=== PATIENT | male | born 1985 | race American Indian/Alaskan Native ===

== ENCOUNTER 2018-12-09 09:45 | Emergency (ER) | payer SELFPAY ==
[2018-12-09 10:04] VITALS: BP 141/96
[2018-12-09] MEDS ORDERED: IBUPROFEN PO ONE (11:20)
[2018-12-09] MEDS ORDERED: TESSALON PERLES PO ONE (11:20)
--- NOTE | 2018-12-09 11:24 | Emergency Department Report ---
ED Chest Pain HPI - General Chief Complaint: Chest Pain Stated Complaint: CHEST TIGHT/SOB/COUGH Time Seen by Provider: 12/09/18 11:05 Source: patient Mode of arrival: Ambulatory Limitations: No Limitations - History of Present Illness Initial Comments: This is a 33-year-old male nontoxic, well nourished in appearance, no acute signs of distress presents to the ED with c/o of nonproductive cough, midsternum chest pain and shortness of breathe x4 days. Patient denies any radiation of pain. Patient describes pain as aching intermittently and only during out. Patient also stated he feels shortness of breathe during cough but otherwise denies any shortness of breathe. Patient denies any hemoptysis, fever, chills, nausea, vomiting, headache, stiff neck, numbness, tingling, abdominal pain. Patient denies pleuritic chest pain. Patient denies any recent travels or long car rides. Patient denies any recent surgeries or any sick contacts. Patient denies any drug allergies. MD Complaint: chest pain -: days(s) (4) Pain Location: other (midsternal) Pain Radiation: none Severity: mild Severity scale (0 -10): 3 Quality: aching Consistency: intermittent Improves With: rest Worsens With: other (cough) re: denies: nausea, vomting, diaphoresis, dyspnea, sense of impending doom Other Symptoms: cough. denies: fever, syncope, rash, acid taste in mouth, leg swelling, palpitations, burping Treatments Prior to Arrival: none Aspirin use within the Past 7 Days: (0) No - Related Data Previous Rx's Medication Instructions Recorded Last Taken Type Amoxicillin/K Clav Tab [Augmentin 1 tab PO Q12HR #20 tab 08/28/15 Unknown Rx 875MG TAB] Prednisone [predniSONE 10 mg 10 mg PO .TAPER #1 tab.ds.pk 08/28/15 Unknown Rx (6-Day Pack, 21 Tabs)] Gentamicin 0.3% Ophth Soln 2 drops OP Q4H #1 bottle 05/17/16 Unknown Rx Ibuprofen [Motrin] 600 mg PO Q8H PRN #50 tablet 05/17/16 Unknown Rx Meloxicam 7.5 mg PO QAM #5 tablet 09/17/17 Unknown Rx ALBUTEROL Inhaler(NF) [VENTOLIN 2 puff IH Q4-6H PRN #1 inha 12/09/18 Unknown Rx Inhaler(NF)] Ibuprofen [Motrin] 600 mg PO Q8H PRN #20 tablet 12/09/18 Unknown Rx Prednisone [predniSONE 10 mg 10 mg PO .TAPER #1 tab.ds.pk 12/09/18 Unknown Rx (6-Day Pack, 21 Tabs)] Allergies Allergy/AdvReac Type Severity Reaction Status Date / Time chocolate flavor Allergy Swelling Verified 12/09/18 10:00 Heart Score - HEART Score History: Slightly suspicious EKG: Normal Age: < 45 Risk factors: No known risk factors Troponin: < normal limit HEART Score: 0 ED Review of Systems ROS: Stated complaint: CHEST TIGHT/SOB/COUGH Other details as noted in HPI Constitutional: denies: chills, fever Eyes: denies: eye pain, eye discharge, vision change ENT: congestion. denies: ear pain, throat pain Respiratory: cough, shortness of breath. denies: wheezing Cardiovascular: chest pain. denies: palpitations Endocrine: no symptoms reported Gastrointestinal: denies: abdominal pain, nausea, diarrhea Genitourinary: denies: urgency, dysuria Musculoskeletal: denies: back pain, joint swelling, arthralgia Skin: denies: rash, lesions Neurological: denies: headache, weakness, paresthesias Psychiatric: denies: anxiety, depression Hematological/Lymphatic: denies: easy bleeding, easy bruising ED Past Medical Hx - Past Medical History Previous Medical History?: Yes Hx Asthma: Yes - Surgical History Past Surgical History?: Yes Additional Surgical History: L hip surgery - Social History Smoking Status: Never Smoker Substance Use Type: None - Medications Home Medications: Home Medications Medication Instructions Recorded Confirmed Last Taken Type Amoxicillin/K Clav Tab [Augmentin 1 tab PO Q12HR #20 tab 08/28/15 05/17/16 Unknown Rx 875MG TAB] Prednisone [predniSONE 10 mg 10 mg PO .TAPER #1 tab.ds.pk 08/28/15 05/17/16 Unknown Rx (6-Day Pack, 21 Tabs)] Gentamicin 0.3% Ophth Soln 2 drops OP Q4H #1 bottle 05/17/16 Unknown Rx Ibuprofen [Motrin] 600 mg PO Q8H PRN #50 tablet 05/17/16 Unknown Rx Meloxicam 7.5 mg PO QAM #5 tablet 09/17/17 Unknown Rx ALBUTEROL Inhaler(NF) [VENTOLIN 2 puff IH Q4-6H PRN #1 inha 12/09/18 Unknown Rx Inhaler(NF)] Ibuprofen [Motrin] 600 mg PO Q8H PRN #20 tablet 12/09/18 Unknown Rx Prednisone [predniSONE 10 mg 10 mg PO .TAPER #1 tab.ds.pk 12/09/18 Unknown Rx (6-Day Pack, 21 Tabs)] ED Physical Exam - General Limitations: No Limitations General appearance: alert, in no apparent distress - Head Head exam: Present: atraumatic, normocephalic - Eye Eye exam: Present: normal appearance - Neck Neck exam: Present: normal inspection, full ROM - Respiratory Respiratory exam: Present: normal lung sounds bilaterally, chest wall tenderness (midsternum). Absent: respiratory distress, wheezes, rales, rhonchi, stridor, accessory muscle use, decreased breath sounds, prolonged expiratory - Cardiovascular Cardiovascular Exam: Present: regular rate, normal rhythm, normal heart sounds. Absent: bradycardia, tachycardia, irregular rhythm, systolic murmur, diastolic murmur, rubs, gallop - Rectal Rectal exam: Present: deferred - Extremities Exam Extremities exam: Present: normal inspection, full ROM - Back Exam Back exam: Present: normal inspection, full ROM - Neurological Exam Neurological exam: Present: alert, oriented X3 - Psychiatric Psychiatric exam: Present: normal affect, normal mood - Skin Skin exam: Present: warm, dry, intact, normal color. Absent: rash ED Course Vital Signs 12/09/18 10:00 Temperature 98.8 F Pulse Rate 71 Respiratory 16 Rate Blood Pressure 141/96 [Right] O2 Sat by Pulse 98 Oximetry - Reevaluation(s) Reevaluation #1: 12/09/18 13:44 Patient is speaking in full sentences with no signs of distress noted. MARCELL score - Marcell Score Age > 65: (0) No Aspirin use within the Past 7 Days: (0) No 3 or more CAD Risk Factors: (0) No 2 or more Angina events in past 24 hrs: (0) No Known CAD with more than 50% Stenosis: (0) No Elevated Cardiac Markers: (0) No ST Deviation Greater than 0.5mm: (0) No MARCELL Score: 0 ED Medical Decision Making - Lab Data Result diagrams: 12/09/18 11:27 12/09/18 11:27 - Medical Decision Making This is a 33-year-old male that presents with costochondritis and bronchitis. Patient is stable and was examined by me. MARCELL and HEART score 0 pints. Wells criteria for DVT/SVT/PE 0 points. Negative d-dimmer. EKG normal sinus rhythm with no significant changes in ST. Chest xray dictated by the radiologist. PAtient is notified of the Xray report with no questions noted. Labs within normal limits. Negative troponin. Patient received Motrin and Tessonlon perrls in the ED which she stated his symptoms are improving subsided. I will discharge patient with prednisone and Motrin. Patient also requested for albuterol refill. Patient was instructed to Follow-up with a primary care/project portfolio analyst doctor in 3-5 days or if symptoms worsen and continue return to emergency room as soon as possible. At time of discharge, the patient does not seem toxic or ill in appearance. No acute signs of distress noted. Patient agrees to discharge treatment plan of care. No further questions noted by the patient. Critical care attestation.: If time is entered above; I have spent that time in minutes in the direct care of this critically ill patient, excluding procedure time. ED Disposition Clinical Impression: Bronchitis, Costochondritis Disposition: -01 TO HOME OR SELFCARE Is pt being admited?: No Does the pt Need Aspirin: No Condition: Stable Instructions: Acute Bronchitis (ED), Costochondritis (ED) Additional Instructions: Follow-up with a primary care/project portfolio analyst doctor in 2-3 days or if symptoms worsen and continue return to emergency room as soon as possible. Prescriptions: ALBUTEROL Inhaler(NF) [VENTOLIN Inhaler(NF)] 2 puff IH Q4-6H PRN #1 inha PRN Reason: Wheezing Ibuprofen [Motrin] 600 mg PO Q8H PRN #20 tablet PRN Reason: Pain Prednisone [predniSONE 10 mg (6-Day Pack, 21 Tabs)] 10 mg PO .TAPER #1 tab.ds.pk Referrals: DAVID HOWARD MD [Primary Care Provider] - 3-5 Days PRIMARY CARE, [Referring] - 3-5 Days MARIKA JARRETT MD [Staff Physician] - 3-5 Days [facility] [Outside] - 3-5 Days [facility] [Outside] - 3-5 Days Forms: Work/School Release Form(ED)
[2018-12-09 11:43] LABS: Basophils % (Auto) 0.8 % (0.0-1.8); Eosinophils # (Auto) 0.5 K/mm3 (0.0-0.4); Eosinophils % (Auto) 9.6 % (0.0-4.3); Hematocrit 48.4 % (35.5-45.6); Hemoglobin 16.3 gm/dl (11.8-15.2); Lymphocytes # (Auto) 1.7 K/mm3 (1.2-5.4); Lymphocytes % (Auto) 34.6 % (13.4-35.0); Mean Corpuscular HGB Conc 34 % (32-34); Mean Corpuscular Volume 88 fl (84-94); Monocytes # (Auto) 0.7 K/mm3 (0.0-0.8); Monocytes % (Auto) 14.5 % (0.0-7.3); Platelet Count 199 K/mm3 (140-440); Red Blood Count 5.49 M/mm3 (3.65-5.03); Red Cell Distribution Width 12.7 % (13.2-15.2)
[2018-12-09 11:54] LABS: BUN/Creatinine Ratio 11; Blood Urea Nitrogen 11 mg/dL (9-20); Calcium 9.4 mg/dL (8.4-10.2); Hemolysis Index 15
--- NOTE | 2018-12-09 12:05 | XRay Report ---
CHEST 2 VIEWS INDICATION: Chest pain. COMPARISON: None similar at this institution. FINDINGS: PA and lateral chest radiographs suggest top normal heart size/borderline cardiomegaly. Mild bronchovascular prominence centrally with subtle perihilar/midlung small nodular airspace opacities, left more than right. No pleural effusions or cephalization however. Intact bones. CONCLUSION: Subtle perihilar nodular airspace opacities and mild central bronchovascular prominence with borderline cardiomegaly. Possible considerations at this time include infection, inflammation versus early/developing pulmonary vascular congestion. Please correlate. Thank you for the opportunity to participate in this patient's care.
== END 2018-12-09 13:54 | disposition home or self-care (01) ==
LOC: ED 09:45
DX: J40 Bronchitis, not specified as acute or chronic (principal); M94.0 Chondrocostal junction syndrome [Tietze]; Z98.890 Other specified postprocedural states; Z91.018 Allergy to other foods
CPT/HCPCS: 36415; 71046; 80048; 84484; 85025; 85379; 85610; 85730; 93005; 93010

== ENCOUNTER 2019-05-12 18:45 | Emergency (ER) | payer OTHER ==
[2019-05-12 19:20] VITALS: BP 138/84
--- NOTE | 2019-05-12 19:27 | Emergency Department Report ---
Blank Doc - Documentation Documentation: This is a 34-year-old male that presents with sore throat. This initial assessment/diagnostic orders/clinical plan/treatment(s) is/are subject to change based on patient's health status, clinical progression and re- assessment by fellow clinical providers in the ED. Further treatment and workup at subsequent clinical providers discretion. Patient/guardians urged not to elope from the ED as their condition may be serious if not clinically assessed and managed. Initial orders include: 1- Patient sent to [facility] for further evaluation and treatment. 2- strep swab
[2019-05-12] MEDS ORDERED: LIDOCAINE VISCOUS 2% PO ONE (23:18)
[2019-05-12] MEDS ORDERED: IBUPROFEN PO ONE (23:18)
--- NOTE | 2019-05-12 23:23 | Emergency Department Report ---
ED General Adult HPI - General Chief complaint: Sore Throat Stated complaint: SORE THROAT Time Seen by Provider: 05/12/19 19:26 Source: patient Mode of arrival: Ambulatory Limitations: No Limitations - History of Present Illness Initial comments: Patient is a 34-year-old -French male with no past medical history presents to the ED with complaint of acute onset persistent severe sore throat and dysphagia for the last 3 days. Patient states that swallowing anything including liquids and solids makes the pain worse. She denies fever, chills, nausea, vomiting, dizziness, headache, nasal and sinus congestion, cough, chest pain or shortness of breath or abdominal pain. Patient states that this morning as a home with similar symptoms. MD Complaint: Sore throat -: Sudden, days(s) (3) Location: mouth Radiation: non-radiation Severity scale (0 -10): 8 Quality: burning, aching, sharp Consistency: constant Improves with: none Worsens with: eating Associated Symptoms: denies other symptoms. denies: confusion, chest pain, cough, diaphoresis, fever/chills, headaches, loss of appetite, malaise, nausea/vomiting, shortness of breath, syncope, weakness Treatments Prior to Arrival: none - Related Data Previous Rx's Medication Instructions Recorded Last Taken Type Amoxicillin/K Clav Tab [Augmentin 1 tab PO Q12HR #20 tab 08/28/15 Unknown Rx 875MG TAB] Prednisone [predniSONE 10 mg 10 mg PO .TAPER #1 tab.ds.pk 08/28/15 Unknown Rx (6-Day Pack, 21 Tabs)] Gentamicin 0.3% Ophth Soln 2 drops OP Q4H #1 bottle 05/17/16 Unknown Rx Ibuprofen [Motrin] 600 mg PO Q8H PRN #50 tablet 05/17/16 Unknown Rx Meloxicam 7.5 mg PO QAM #5 tablet 09/17/17 Unknown Rx ALBUTEROL Inhaler(NF) [VENTOLIN 2 puff IH Q4-6H PRN #1 inha 12/09/18 Unknown Rx Inhaler(NF)] Ibuprofen [Motrin] 600 mg PO Q8H PRN #20 tablet 12/09/18 Unknown Rx Prednisone [predniSONE 10 mg 10 mg PO .TAPER #1 tab.ds.pk 12/09/18 Unknown Rx (6-Day Pack, 21 Tabs)] Azithromycin [Zithromax Z-GRANT] 250 mg PO DAILY #6 tablet 05/12/19 Unknown Rx Ibuprofen [Motrin] 800 mg PO Q8HR PRN #20 tablet 05/12/19 Unknown Rx Lidocaine Viscous 2% 10 ml PO Q6H PRN #120 ml 05/12/19 Unknown Rx Allergies Allergy/AdvReac Type Severity Reaction Status Date / Time chocolate flavor Allergy Swelling Verified 12/09/18 10:00 ED Review of Systems ROS: Stated complaint: SORE THROAT Other details as noted in HPI Constitutional: denies: chills, fever Eyes: denies: eye pain, eye discharge, vision change ENT: throat pain. denies: ear pain Respiratory: denies: cough, shortness of breath, wheezing Cardiovascular: denies: chest pain, palpitations Endocrine: no symptoms reported Gastrointestinal: denies: abdominal pain, nausea, diarrhea Genitourinary: denies: urgency, dysuria Musculoskeletal: denies: back pain, joint swelling, arthralgia Skin: denies: rash, lesions Neurological: denies: headache, weakness, paresthesias Psychiatric: denies: anxiety, depression Hematological/Lymphatic: denies: easy bleeding, easy bruising ED Past Medical Hx - Past Medical History Previous Medical History?: Yes Hx Asthma: Yes - Surgical History Past Surgical History?: No Additional Surgical History: L hip surgery - Social History Smoking Status: Never Smoker Substance Use Type: None - Medications Home Medications: Home Medications Medication Instructions Recorded Confirmed Last Taken Type Amoxicillin/K Clav Tab [Augmentin 1 tab PO Q12HR #20 tab 08/28/15 05/17/16 Unknown Rx 875MG TAB] Prednisone [predniSONE 10 mg 10 mg PO .TAPER #1 tab.ds.pk 08/28/15 05/17/16 Unknown Rx (6-Day Pack, 21 Tabs)] Gentamicin 0.3% Ophth Soln 2 drops OP Q4H #1 bottle 05/17/16 Unknown Rx Ibuprofen [Motrin] 600 mg PO Q8H PRN #50 tablet 05/17/16 Unknown Rx Meloxicam 7.5 mg PO QAM #5 tablet 09/17/17 Unknown Rx ALBUTEROL Inhaler(NF) [VENTOLIN 2 puff IH Q4-6H PRN #1 inha 12/09/18 Unknown Rx Inhaler(NF)] Ibuprofen [Motrin] 600 mg PO Q8H PRN #20 tablet 12/09/18 Unknown Rx Prednisone [predniSONE 10 mg 10 mg PO .TAPER #1 tab.ds.pk 12/09/18 Unknown Rx (6-Day Pack, 21 Tabs)] Azithromycin [Zithromax Z-GRANT] 250 mg PO DAILY #6 tablet 05/12/19 Unknown Rx Ibuprofen [Motrin] 800 mg PO Q8HR PRN #20 tablet 05/12/19 Unknown Rx Lidocaine Viscous 2% 10 ml PO Q6H PRN #120 ml 05/12/19 Unknown Rx ED Physical Exam - General Limitations: No Limitations General appearance: alert, in no apparent distress - Head Head exam: Present: atraumatic, normocephalic, normal inspection - Eye Eye exam: Present: normal appearance, PERRL, EOMI - ENT ENT exam: Present: mucous membranes moist, TM's normal bilaterally, normal external ear exam, other (Erythematous oropharyngeal area) - Neck Neck exam: Present: normal inspection, full ROM - Respiratory Respiratory exam: Present: normal lung sounds bilaterally. Absent: respiratory distress, wheezes, rales, rhonchi, chest wall tenderness, accessory muscle use, decreased breath sounds, prolonged expiratory - Cardiovascular Cardiovascular Exam: Present: regular rate, normal rhythm, normal heart sounds. Absent: systolic murmur, diastolic murmur, rubs, gallop - GI/Abdominal GI/Abdominal exam: Present: soft, normal bowel sounds. Absent: distended, tenderness, guarding, hyperactive bowel sounds, organomegaly - Rectal Rectal exam: Present: deferred - Extremities Exam Extremities exam: Present: normal inspection, full ROM, normal capillary refill - Back Exam Back exam: Present: normal inspection, full ROM. Absent: tenderness, CVA tenderness (R), CVA tenderness (L), paraspinal tenderness - Neurological Exam Neurological exam: Present: alert, oriented X3, CN II-XII intact, normal gait, reflexes normal - Psychiatric Psychiatric exam: Present: normal affect, normal mood - Skin Skin exam: Present: warm, dry, intact, normal color. Absent: rash ED Course Vital Signs 05/12/19 19:19 Temperature 98.1 F Pulse Rate 69 Respiratory 18 Rate Blood Pressure 138/84 [Left] O2 Sat by Pulse 100 Oximetry - Reevaluation(s) Reevaluation #1: 05/12/19 23:22 Patient is alert and oriented 3 and is not in distress with normal vital signs. Patient was today for pain in the ED and rapid strep test is negative. Patient was discharged home on medications and advised to follow-up with his primary care physician in 5-7 days for reevaluation. The patient advised to return to the ED immediately if symptoms get worse. ED Medical Decision Making - Medical Decision Making Patient is alert and oriented 3 and is not in distress with normal vital signs. Patient was today for pain in the ED and rapid strep test is negative. Patient was discharged home on medications and advised to follow-up with his primary care physician in 5-7 days for reevaluation. The patient advised to return to the ED immediately if symptoms get worse. - Differential Diagnosis acute pharyngitis; acute URI Critical care attestation.: If time is entered above; I have spent that time in minutes in the direct care of this critically ill patient, excluding procedure time. ED Disposition Clinical Impression: Acute pharyngitis Qualifiers: Pharyngitis/tonsillitis etiology: unspecified etiology Qualified Code(s): J02.9 - Acute pharyngitis, unspecified Disposition: TO HOME OR SELFCARE Is pt being admited?: No Does the pt Need Aspirin: No Condition: Stable Instructions: Pharyngitis (ED), Strep Throat (ED) Additional Instructions: TAKE MEDICATIONS WITH FOOD, DRINK PLENTY OF FLUIDS AND FOLLOW UP WITH YOUR PRIMARY CARE PHYSICIAN IN 7-10 DAYS FOR REEVALUATION Prescriptions: Lidocaine Viscous 2% 10 ml PO Q6H PRN #120 ml PRN Reason: Pain , Severe (7-10) Ibuprofen [Motrin] 800 mg PO Q8HR PRN #20 tablet PRN Reason: Pain , Severe (7-10) Azithromycin [Zithromax Z-GRANT] 250 mg PO DAILY #6 tablet Referrals: [facility] [Outside] - 3-5 Days Time of Disposition: 23:24 Print Language: URUGUAYAN
== END 2019-05-13 00:10 | disposition home or self-care (01) ==
LOC: ED 18:45
DX: J02.9 Acute pharyngitis, unspecified (principal); J45.909 Unspecified asthma, uncomplicated; Z98.890 Other specified postprocedural states; Z91.018 Allergy to other foods
CPT/HCPCS: 87116; 87430

== ENCOUNTER 2019-11-27 22:42 | Emergency (ER) | payer SELFPAY ==
--- NOTE | 2019-11-28 03:31 | Emergency Department Report ---
Chief Complaint: Sore Throat Stated Complaint: SORE THROAT Time Seen by Provider: 11/28/19 02:44 - HPI History of Present Illness: Patient is a 34-year-old male presents emergency room with complaints of a sore throat that began a couple days ago. He states that he has some discomfort with swallowing. He denies any fever or throat swelling. He is able to tolerate by mouth intake without difficulty. He denies any known sick contacts. 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 He states that he notices the throat discomfort increases after he has been working. He denies any past medical history or allergies medications. He has never seen an ear nose and throat doctor. Vitals are normal. Rapid strep ordered by triage and is negative all other 10 systems reviewed and are negative On exam No acute distress, nontoxic appearing Normal oropharynx, no tonsillar hypertrophy, no exudates, uvula is midline, no uvular deviation, no uvular edema No lymphadenopathy Normal heart sounds, regular rate and rhythm, no gallops, no murmurs him a no rubs Normal breath sounds bilaterally without wheezing, rales, rhonchi Patient is presenting with a nonmedical emergency at this time Screening examination performed and there is no threat to life or limb at this time Patient has been evaluated in the emergency department previously and has had negative throat cultures Could be related to a viral pharyngitis or allergies will refer patient to a ENT doctor and a primary care doctor MSE screening note: Focused history and physical exam performed. ED Disposition for MSE Clinical Impression: Pain in throat Disposition: MED SCREENING EXAM-LEFT Is pt being admited?: No Does the pt Need Aspirin: No Condition: Stable Additional Instructions: may use [id number] throat spray or Cepacol. May use Tylenol or ibuprofen for discomfort. Do warm saltwater gargles 3 times a day. May take a Claritin or Zyrtec [id number]. Follow-up with a primary care doctor and ears nose and throat doctor in the next 2-3 days. Return to the emergency room for any new or worsening symptoms. Referrals: CHIP SHOEMAKER MD [Staff Physician] - 2-[address] [facility] [Outside] - 2-3 Days [facility] [Outside] - 2-3 Days GARY BROWN MD [Staff Physician] - 2-3 Days ZHANG GARZON MD [Staff Physician] - 2-3 Days Time of Disposition: 03:29 Print Language: ARABIC
[2019-11-28 04:12] VITALS: BP 147/100
== END 2019-11-28 04:11 | disposition left against medical advice (07) ==
LOC: ED 22:42
DX: R07.0 Pain in throat (principal)
CPT/HCPCS: 87116; 87430

== ENCOUNTER 2022-01-06 19:04 | Emergency (ER) | payer SELFPAY ==
[2022-01-06 19:44] VITALS: BP 149/82
--- NOTE | 2022-01-06 21:40 | Emergency Department Report ---
ED ENT HPI - General Chief complaint: Sore Throat Stated complaint: BODY ACHES/SORE THROAT/FEVER Source: patient Mode of arrival: Ambulatory Limitations: No Limitations - History of Present Illness Initial comments: 36-year-old male presents to the ED complaining of sore throat x3 days. States painful to swallow. Patient complaining of fever. Denies taking any [id number] medication. Patient states that he has had strep throat in the past. Patient is alert and oriented x3. No acute distress noted. No ill appearance noted. Onset/Timin -: days(s) Severity scale (0 -10): 6 Quality: aching Consistency: constant Improves with: none Worsens with: swallowing Associated Symptoms: fever - Related Data Previous Rx's Medication Instructions Recorded Last Taken Type Amoxicillin/K Clav Tab [Augmentin 1 tab PO Q12HR #20 tab 08/28/15 Unknown Rx 875MG TAB] Prednisone [predniSONE 10 mg 10 mg PO .TAPER #1 tab.ds.pk 08/28/15 Unknown Rx (6-Day Pack, 21 Tabs)] Gentamicin 0.3% Ophth Soln 2 drops OP Q4H #1 bottle 05/17/16 Unknown Rx Ibuprofen [Motrin] 600 mg PO Q8H PRN #50 tablet 05/17/16 Unknown Rx Meloxicam 7.5 mg PO QAM #5 tablet 09/17/17 Unknown Rx ALBUTEROL Inhaler(NF) [VENTOLIN 2 puff IH Q4-6H PRN #1 inha 12/09/18 Unknown Rx Inhaler(NF)] Ibuprofen [Motrin] 600 mg PO Q8H PRN #20 tablet 12/09/18 Unknown Rx Prednisone [predniSONE 10 mg 10 mg PO .TAPER #1 tab.ds.pk 12/09/18 Unknown Rx (6-Day Pack, 21 Tabs)] Azithromycin [Zithromax Z-GRANT] 250 mg PO DAILY #6 tablet 05/12/19 Unknown Rx Ibuprofen [Motrin] 800 mg PO Q8HR PRN #20 tablet 05/12/19 Unknown Rx Lidocaine Viscous 2% 10 ml PO Q6H PRN #120 ml 05/12/19 Unknown Rx Acetaminophen/Codeine [Tylenol 1 tab PO Q6H PRN 3 Days #12 tab 01/06/22 Unknown Rx /Codeine # 3 tab] Ibuprofen [Motrin] 800 mg PO Q8HR PRN 15 Days #30 01/06/22 Unknown Rx tablet Penicillin V Potassium 500 mg PO BID 10 Days #20 tab 01/06/22 Unknown Rx Allergies Allergy/AdvReac Type Severity Reaction Status Date / Time chocolate flavor Allergy Swelling Verified 12/09/18 10:00 ED Dental HPI - General Chief complaint: Sore Throat Stated complaint: BODY ACHES/SORE THROAT/FEVER Source: patient Mode of arrival: Ambulatory Limitations: No Limitations - Related Data Previous Rx's Medication Instructions Recorded Last Taken Type Amoxicillin/K Clav Tab [Augmentin 1 tab PO Q12HR #20 tab 08/28/15 Unknown Rx 875MG TAB] Prednisone [predniSONE 10 mg 10 mg PO .TAPER #1 tab.ds.pk 08/28/15 Unknown Rx (6-Day Pack, 21 Tabs)] Gentamicin 0.3% Ophth Soln 2 drops OP Q4H #1 bottle 05/17/16 Unknown Rx Ibuprofen [Motrin] 600 mg PO Q8H PRN #50 tablet 05/17/16 Unknown Rx Meloxicam 7.5 mg PO QAM #5 tablet 09/17/17 Unknown Rx ALBUTEROL Inhaler(NF) [VENTOLIN 2 puff IH Q4-6H PRN #1 inha 12/09/18 Unknown Rx Inhaler(NF)] Ibuprofen [Motrin] 600 mg PO Q8H PRN #20 tablet 12/09/18 Unknown Rx Prednisone [predniSONE 10 mg 10 mg PO .TAPER #1 tab.ds.pk 12/09/18 Unknown Rx (6-Day Pack, 21 Tabs)] Azithromycin [Zithromax Z-GRANT] 250 mg PO DAILY #6 tablet 05/12/19 Unknown Rx Ibuprofen [Motrin] 800 mg PO Q8HR PRN #20 tablet 05/12/19 Unknown Rx Lidocaine Viscous 2% 10 ml PO Q6H PRN #120 ml 05/12/19 Unknown Rx Acetaminophen/Codeine [Tylenol 1 tab PO Q6H PRN 3 Days #12 tab 01/06/22 Unknown Rx /Codeine # 3 tab] Ibuprofen [Motrin] 800 mg PO Q8HR PRN 15 Days #30 01/06/22 Unknown Rx tablet Penicillin V Potassium 500 mg PO BID 10 Days #20 tab 01/06/22 Unknown Rx Allergies Allergy/AdvReac Type Severity Reaction Status Date / Time chocolate flavor Allergy Swelling Verified 12/09/18 10:00 ED Review of Systems ROS: Stated complaint: BODY ACHES/SORE THROAT/FEVER Other details as noted in HPI Constitutional: denies: chills, fever Eyes: denies: eye pain, eye discharge, vision change ENT: throat pain. denies: ear pain Respiratory: denies: cough, shortness of breath, wheezing Cardiovascular: denies: chest pain, palpitations Endocrine: no symptoms reported Gastrointestinal: denies: abdominal pain, nausea, diarrhea Genitourinary: denies: urgency, dysuria Musculoskeletal: denies: back pain, joint swelling, arthralgia Skin: denies: rash, lesions Neurological: denies: headache, weakness, paresthesias Psychiatric: denies: anxiety, depression Hematological/Lymphatic: denies: easy bleeding, easy bruising ED Past Medical Hx - Past Medical History Previous Medical History?: Yes Hx Asthma: Yes - Surgical History Past Surgical History?: Yes Additional Surgical History: L hip surgery - Social History Smoking Status: Never Smoker Substance Use Type: None - Medications Home Medications: Home Medications Medication Instructions Recorded Confirmed Last Taken Type Amoxicillin/K Clav Tab [Augmentin 1 tab PO Q12HR #20 tab 08/28/15 05/17/16 Unknown Rx 875MG TAB] Prednisone [predniSONE 10 mg 10 mg PO .TAPER #1 tab.ds.pk 08/28/15 05/17/16 Unknown Rx (6-Day Pack, 21 Tabs)] Gentamicin 0.3% Ophth Soln 2 drops OP Q4H #1 bottle 05/17/16 Unknown Rx Ibuprofen [Motrin] 600 mg PO Q8H PRN #50 tablet 05/17/16 Unknown Rx Meloxicam 7.5 mg PO QAM #5 tablet 09/17/17 Unknown Rx ALBUTEROL Inhaler(NF) [VENTOLIN 2 puff IH Q4-6H PRN #1 inha 12/09/18 Unknown Rx Inhaler(NF)] Ibuprofen [Motrin] 600 mg PO Q8H PRN #20 tablet 12/09/18 Unknown Rx Prednisone [predniSONE 10 mg 10 mg PO .TAPER #1 tab.ds.pk 12/09/18 Unknown Rx (6-Day Pack, 21 Tabs)] Azithromycin [Zithromax Z-GRANT] 250 mg PO DAILY #6 tablet 05/12/19 Unknown Rx Ibuprofen [Motrin] 800 mg PO Q8HR PRN #20 tablet 05/12/19 Unknown Rx Lidocaine Viscous 2% 10 ml PO Q6H PRN #120 ml 05/12/19 Unknown Rx Acetaminophen/Codeine [Tylenol 1 tab PO Q6H PRN 3 Days #12 tab 01/06/22 Unknown Rx /Codeine # 3 tab] Ibuprofen [Motrin] 800 mg PO Q8HR PRN 15 Days #30 01/06/22 Unknown Rx tablet Penicillin V Potassium 500 mg PO BID 10 Days #20 tab 01/06/22 Unknown Rx ED Physical Exam - General Limitations: No Limitations General appearance: alert, in no apparent distress - Head Head exam: Present: atraumatic, normocephalic - Eye Eye exam: Present: normal appearance - ENT ENT exam: Present: mucous membranes moist - Expanded ENT Exam Expanded Throat exam: Positive: tonsillar erythema, tonsillomegaly, tonsillar exudate - Neck Neck exam: Present: normal inspection - Respiratory Respiratory exam: Present: normal lung sounds bilaterally. Absent: respiratory distress - Cardiovascular Cardiovascular Exam: Present: regular rate, normal rhythm. Absent: systolic murmur, diastolic murmur, rubs, gallop - GI/Abdominal GI/Abdominal exam: Present: soft, normal bowel sounds - Rectal Rectal exam: Present: deferred - Extremities Exam Extremities exam: Present: normal inspection - Back Exam Back exam: Present: normal inspection - Neurological Exam Neurological exam: Present: alert, oriented X3 - Psychiatric Psychiatric exam: Present: normal affect, normal mood - Skin Skin exam: Present: warm, dry, intact, normal color. Absent: rash ED Course Vital Signs 01/06/22 19:37 Temperature 99.3 F Pulse Rate 76 Respiratory 17 Rate Blood Pressure 149/82 [Right] O2 Sat by Pulse 96 Oximetry ED Medical Decision Making - Medical Decision Making 36-year-old male presents to the ED complaining of sore throat x3 days. States painful to swallow. Patient complaining of fever. Denies taking any [id number] medication. Patient states that he has had strep throat in the past. Patient is alert and oriented x3. No acute distress noted. No ill appearance noted. Physical examination enlarged tonsils, erythema and tonsillar exudate. Rapid strep positive. Discussed findings with patient Rechecked the patient is resting quietly quietly and comfortable and feeling better. I discussed the results of diagnostic study, my clinical impression and the plan for further treatment with the patient. Patient agrees with plan and discharge at this present time. All question addressed. I have given the patient instruction regarding a diagnosis ,expectation ,follow- up and return precaution. I explained to the patient that emergent condition may arise and to return to the ED for new worsen and any new persisting condition. I have explained the importance of following up with the primary care physician or referral physician listed below has instructed. The patient verbalized understanding of discharge instruction. Critical care attestation.: If time is entered above; I have spent that time in minutes in the direct care of this critically ill patient, excluding procedure time. ED Disposition Clinical Impression: Strep pharyngitis Disposition: 01 HOME / SELF CARE / HOMELESS Is pt being admited?: No Does the pt Need Aspirin: No Condition: Stable Instructions: Strep Throat, Adult, [id number] Additional Instructions: Drink Plenty of fluids Take medication as prescribed Return to ED for any worsening symptoms Prescriptions: Ibuprofen [Motrin] 800 mg PO Q8HR PRN 15 Days #30 tablet PRN Reason: Pain, Mild (1-3) Penicillin V Potassium 500 mg PO BID 10 Days #20 tab Acetaminophen/Codeine [Tylenol /Codeine # 3 tab] 1 tab PO Q6H PRN 3 Days #12 tab PRN Reason: Pain , Severe (7-10) Referrals: PRIMARY CARE, [Primary Care Provider] - 3-5 Days [facility] [Provider Group] - 3-5 Days Forms: Work/School Release Form(ED)
== END 2022-01-06 22:16 | disposition home or self-care (01) ==
LOC: ED 19:04
DX: J02.0 Streptococcal pharyngitis (principal); J45.909 Unspecified asthma, uncomplicated; Z98.890 Other specified postprocedural states; Z91.018 Allergy to other foods
CPT/HCPCS: 87430; 99283